=== PATIENT | female | born 1970 | race Caucasian/White ===

== ENCOUNTER 2016-06-09 08:41 | Emergency (ER) | payer MEDICAID ==
[~2016-06-09] VITALS: Wt 69.0 kg
[~2016-06-09 08:41] MED LIST: PREN-39 PO
[2016-06-09] MEDS ORDERED: KETOROLAC 30 MG INJ IM STA (09:19)
[2016-06-09 09:29] LABS: URINE BLOOD (Dip) POC 1+ (NEGATIVE)
[2016-06-09] MEDS ORDERED: predniSONE 20 MG TAB PO ONE (09:30)
--- NOTE | 2016-06-09 09:46 | ERD ---
ER Documentation Chief Complaint Date/Time DATE: 06/09/16 TIME: 09:44 Chief Complaint R LEG PAIN RADIATING FROM R BUTTOCK. NO TRAUMA ONSET ABOUT 2 DAYS. HPI This is a 46-year-old female who presents to the emergency department today complaining of right leg pain that radiates from her buttock down to the bottom of her foot. States this is been ongoing for the past 3 days and is unable to walk for sleep. States she has taken ibuprofen and Naprosyn for the pain. Denies any fevers or chills, loss of bowel or bladder control. Denies any trauma. ROS All systems reviewed and are negative except as per history of present illness. Medications Home Meds Active Scripts Acetaminophen* (Tylophen*) 500 Mg Capsule, 1 CAP PO Q6H Y for PAIN AND OR ELEVATED TEMP, #30 CAP Prov:GAUDENCIO CASH PA-C 06/09/16 Prednisone* (Prednisone*) 20 Mg Tab, 40 MG PO DAILY for 4 Days, TAB Prov:GAUDENCIO CASH PA-C 06/09/16 Naproxen* (Naprosyn*) 500 Mg Tablet, 500 MG PO BID Y for PAIN AND/OR INFLAMMATION, #30 TAB Prov:GAUDENICO CASH PA-C 06/09/16 Tramadol HCl (Tramadol HCl) 50 Mg Tablet, 50 MG PO Q4 Y for PAIN, #20 TAB Prov:GAUDENCIO CASH PA-C 06/09/16 Reported Medications Vits W-Ca,Fe,Fa(<1MG) ( Vitamins) 1 Tab Tablet, PO DAILY 02/07/11 Allergies Allergies: Coded Allergies: No Known Allergies (Verified Allergy, Unknown, 06/09/16) PMhx/Soc History of Surgery: Yes (c section x 5 ) Anesthesia Reaction: No Hx Neurological Disorder: No Hx Respiratory Disorders: No Hx Cardiac Disorders: No Hx Psychiatric Problems: No Hx Miscellaneous Medical Probl: No Hx Alcohol Use: No Hx Substance Use: No Hx Tobacco Use: No Smoking Status: Never smoker Physical Exam Vitals Vital Signs Date Time Temp Pulse Resp B/P Pulse Ox O2 Delivery O2 Flow Rate FiO2 06/09/16 08:44 98.8 75 20 162/74 100 Physical Exam Const: Sitting in wheelchair, no acute distress Head: Atraumatic Eyes: Normal Conjunctiva ENT: Normal External Ears, Nose and Mouth. Neck: Full range of motion..~ No meningismus. Resp: Clear to auscultation bilaterally Cardio: Regular rate and rhythm, no murmurs Skin: No petechiae or rashes Back: No midline tenderness. Right-sided paraspinal tenderness. Unable to assess range of motion secondary to pain. Pulses 2+. Distal neurovascularly intact. Ext: No cyanosis, or edema Neur: Awake and alert Psych: Normal Mood and Affect Results 24 hrs Laboratory Tests Test 06/09/16 09:32 Bedside Urine Blood 1+ Bedside Urine Glucose (UA) Negative Bedside Urine Ketones (LAB) Negative Bedside Urine Leukocyte Esterase (L Negative Bedside Urine Nitrite (LAB) Negative Bedside Urine Protein (LAB) Negative Bedside Urine pH (LAB) 5.5 Current Medications Medications (Trade) Dose Ordered Sig/Ronnie Route PRN Reason Start Time Stop Time Status Last Admin Dose Admin Ketorolac Tromethamine (Toradol) 30 mg ONCE STAT IM 06/09/16 09:19 06/09/16 09:21 DC 06/09/16 09:29 Prednisone (Prednisone) 60 mg ONCE ONCE PO 06/09/16 09:30 06/09/16 09:31 DC 06/09/16 09:29 Patient: NANNETTE MOSER : 1970 Age: 46 Sex: F MR #: [id number] DOS: 06/09/16 0000 Ordering MD: GAUDENCIO CASH PA-C Location: [facility] Room/Bed: PROCEDURE: XR lumbosacral Spine Series CLINICAL INDICATION: Right leg pain TECHNIQUE: 3 standard radiographs were taken of the lumbosacral spine. COMPARISON: None FINDINGS: Alignment: the osseous elements are well aligned without evidence of subluxation. Disk spaces: the disk spaces are adequately maintained. Osseous structures: appear intact with no fracture or osseous destruction identified. there is no significant spondylosis. Joint spaces: the facet joints joints appear unremarkable. The sacroiliac joints appear normal. Soft tissues: appear unremarkable. IMPRESSION: Unremarkable lumbosacral spine series. R Nat, Physician Date Time Electronically viewed and signed by Naif Johns Physician on 06/09/2016 10:05 RH/ CC: GAUDENCIO CASH PA-C Procedures/MDM This a 46-year-old female who presents to the emergency department today complaining of right-sided leg pain that radiates from her buttocks. Patient did not have any trauma however she is unable to ambulate without pain and indicated difficulty sleeping and therefore did obtain lumbar spine films and UA. UA is negative for infection. Per the radiology report images of the lumbar spine are unremarkable. There is no acute fracture dislocation. Disc spaces are well maintained. No evidence of degenerative disc disease. Patient is afebrile and otherwise well-appearing. Low suspicion for abscess, cauda equina. Low suspicion for fracture dislocation. Low suspicion for DVT. Patient symptoms at this time most consistent with sciatica. Patient was given a Toradol injection here in the emergency department as well as prednisone. Pain improved I will give her a prescription for tramadol, Naprosyn, Tylenol short course of prednisone for home. She was also given crutches to help take the pressure off her leg and help ambulate. At this time the patient is stable for discharge and outpatient management. Patient should follow up with their PCP in the next 1-2 days. She was given a list of referrals. They may return to the emergency department sooner for any persistent or worsening of symptoms. Patient understood and agreed with the plan. Departure Diagnosis: Primary Impression: Pain of right leg Condition: Fair GAUDENCIO CASH PA-C Jun 09, 2016 09:46
--- NOTE | 2016-06-09 10:05 | RADRPT ---
PROCEDURE: XR lumbosacral Spine Series CLINICAL INDICATION: Right leg pain TECHNIQUE: 3 standard radiographs were taken of the lumbosacral spine. COMPARISON: None FINDINGS: Alignment: the osseous elements are well aligned without evidence of subluxation. Disk spaces: the disk spaces are adequately maintained. Osseous structures: appear intact with no fracture or osseous destruction identified. there is no si gnificant spondylosis. Joint spaces: the facet joints joints appear unremarkable. The sacroiliac joints appear normal. Soft tissues: appear unremarkable. IMPRESSION: Unremarkable lumbosacral spine series. Physician Telly Date Time Electronically viewed and signed by Physician Telly on 06/09/2016 10:05 /
[2016-06-09] MEDS ORDERED: ACET500C5 PO (10:31)
[2016-06-09] MEDS ORDERED: NAPR-260 PO (10:31)
[2016-06-09] MEDS ORDERED: TRAM50TA2 PO (10:31)
[2016-06-09] MEDS ORDERED: PRED20TA PO (10:31)
== END 2016-06-09 10:46 | disposition home or self-care (01) ==
LOC: FTE 08:41
DX: M79.604 Pain in right leg (principal)
CPT/HCPCS: 72100; 81003; 96372; J1885; J7512; Z7502

== ENCOUNTER 2016-09-19 08:59 | Emergency (ER) | payer MEDICAID ==
[~2016-09-19] VITALS: Ht 160 cm; Wt 71.5 kg
[~2016-09-19 08:59] MED LIST changes: +ACET500C5 PO; +NAPR-260 PO; +PRED20TA PO; +TRAM50TA2 PO
[2016-09-19 09:04] VITALS: Ht 160 cm; Wt 71.5 kg
[2016-09-19] MEDS ORDERED: ONDANSETRON (ODT) 4 MG TAB ODT STA (09:20)
[2016-09-19] MEDS ORDERED: MECLIZINE 12.5 MG TAB PO STA (09:20)
[2016-09-19] MEDS ORDERED: ACETAMINOPHEN 325 MG TAB PO STA (09:21)
[2016-09-19] MEDS ORDERED: ACET325T33 PO (10:12)
[2016-09-19] MEDS ORDERED: FLUT9.9S NASAL (10:12)
[2016-09-19] MEDS ORDERED: MECL12.574 PO (10:20)
[2016-09-19] MEDS ORDERED: ONDA4TAB14 PO (10:20)
--- NOTE | 2016-09-19 10:42 | ERD ---
ER Documentation Chief Complaint Date/Time DATE: 09/19/16 TIME: 10:40 Chief Complaint nasal congestion , headache HPI This is a 46-year-old female presenting to the emergency department complaining of nasal congestion, sinus pressure and increased tiredness for the past month. Patient rates the pain 6 out of 10 and states comes and goes. Patient states that she started having a headache this morning describing it as moderate in severity. She states that she feels dizzy when she turns her head, she states that she feels as if the room is spinning. She admits to having nausea. She denies vomiting, hearing loss, tinnitus, ear pain. ROS All systems reviewed and are negative except as per history of present illness. Medications Home Meds Active Scripts Ondansetron (Ondansetron Odt) 4 Mg Tab.rapdis, 4 MG PO Q6H Y for NAUSEA AND/OR VOMITING, #20 TAB Prov:CA JURADO PA-C 09/19/16 Meclizine Hcl* (Antivert*) 12.5 Mg Tab, 25 MG PO Q6H Y for DIZZINESS, #30 TAB Prov:CA JURADO PA-C 09/19/16 Fluticasone Propionate (Flonase Allergy Relief) 9.9 Ml [place].susp, 1 SPRAY NASAL BID, #1 BOTTLE TO EACH NOSTRIL Prov:CA JURADO PA-C 09/19/16 Acetaminophen* (Tylenol*) 325 Mg Tablet, 2 TAB PO Q6 Y for PAIN AND OR ELEVATED TEMP, #30 TAB Prov:CA JURADO PA-C 09/19/16 Acetaminophen* (Tylophen*) 500 Mg Capsule, 1 CAP PO Q6H Y for PAIN AND OR ELEVATED TEMP, #30 CAP Prov:GAUDENCIO CASH PA-C 06/09/16 Prednisone* (Prednisone*) 20 Mg Tab, 40 MG PO DAILY for 4 Days, TAB Prov:GAUDENCIO CASH PA-C 06/09/16 Naproxen* (Naprosyn*) 500 Mg Tablet, 500 MG PO BID Y for PAIN AND/OR INFLAMMATION, #30 TAB Prov:GAUDENCIO CASH PA-C 06/09/16 Tramadol HCl (Tramadol HCl) 50 Mg Tablet, 50 MG PO Q4 Y for PAIN, #20 TAB Prov:GAUDENCIO CASH [place] 06/09/16 Reported Medications Vits W-Ca,Fe,Fa(<1MG) ( Vitamins) 1 Tab Tablet, PO DAILY 02/07/11 Allergies Allergies: Coded Allergies: No Known Allergies (Verified Allergy, Unknown, 06/09/16) PMhx/Soc History of Surgery: Yes (c section x 5 ) Anesthesia Reaction: No Hx Neurological Disorder: No Hx Respiratory Disorders: No Hx Cardiac Disorders: No Hx Psychiatric Problems: No Hx Miscellaneous Medical Probl: No Hx Alcohol Use: No Hx Substance Use: No Hx Tobacco Use: No Physical Exam Vitals Vital Signs Date Time Temp Pulse Resp B/P Pulse Ox O2 Delivery O2 Flow Rate FiO2 09/19/16 09:04 98.2 89 19 139/69 98 Physical Exam GENERAL: well-developed/well-nourished, in no apparent distress, non-toxic appearing HENT: NC/AT, bilateral tympanic membrane is normal with good cone of light, nares patent, oropharynx clear without exudates EYES: Conjunctiva normal, PERRLA, EOMI, no nystagmus noted NECK: Supple, no lymphadenopathy PULM: CTA bilaterally, no rales, rhonchi, or wheezing heard CV: Normal S1S2, RRR, good capillary refill GI: Soft, non-distended, normal bowel sounds, non-tender BACK: No midline tenderness, no masses, No CVAT EXT: No clubbing, cyanosis, or edema NEURO: Alert and orientated to person, place, and time. CN II-IIX intact. Gait and coordination were normal. 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 equal and within normal limits SKIN: Intact, normal turgor PSYCH: Normal mood and mentation, patient denied SI Results 24 hrs Current Medications Medications (Trade) Dose Ordered Sig/Ronnie Route PRN Reason Start Time Stop Time Status Last Admin Dose Admin Meclizine HCl (Antivert) 25 mg ONCE STAT PO 09/19/16 09:20 09/19/16 09:21 DC 09/19/16 09:25 Ondansetron HCl (Zofran Odt) 4 mg ONCE STAT ODT 09/19/16 09:20 09/19/16 09:21 DC 6/9/17 09:25 Acetaminophen (Tylenol Tab) 650 mg ONCE STAT PO 09/19/16 09:21 09/19/16 09:22 DC 09/19/16 09:25 Procedures/MDM This is a well-appearing 46-year-old female presenting to the emergency department complaining of nasal congestion, increased tiredness for 1 month and symptoms of vertigo and headache that started today. Patient likely has allergic vs viral sinusitis. My clinical suspicion for peripheral vertigo is high due to physical examination. Symptoms were reproduced with movement of head. My other differentials include but not limited to include labyrinthitis, vestibular neuritis, Mnire's disease, acoustic neuroma, otitis media and central causes such as vestibular migraine, brainstem ischemia, and multiple sclerosis. Patient associates a headache with it therefore I thought it was appropriate to do a CT scan of the head, radiologist stated: No evidence of acute intracranial pathology. In the ED, patient was given Antivert 25mg and Zofran 4mg ODT. Hemodynamically stable to be discharged home. I have discussed the pathology of the condition. Prescriptions flonase, antivert, zofran have been given. I have discussed to see a primary care physician for follow-up examination and management. I have given strict precautions to return to the ER if condition is not improving as expected or if condition worsens. Discussed to return to the ER if condition worsens or not improves as expected. Patient expressed that they agreed and understood this plan. Departure Diagnosis: Primary Impression: Vertigo Additional Impressions: Sinusitis Headache Condition: Stable Patient Instructions: Inner Ear Problems: Causes of Dizziness (Vertigo), Sinusitis, No Abx, Vertigo, Unspecified, Uri, Viral, No Abx (Adult) Referrals: NO PRIMARY,CARE PHYSICIAN (PCP) Additional Instructions: Llame al doctor MAANA y nicholas maurisio THEODORA PARA DENTRO DE 1-2 TORRES.Dgale a la secretaria que nosotros le instruimos hacer esta theodora.Avise o llame si vidal condicin se empeora antes de la theodora. Regresa aqui si peor o no mejor. [place] toda la medicina minnie y rashid se le indic. Regrese a estas instalaciones si no se mejora rashid esperbamos o rashid le dijimos. CA JURADO PA-C Sep 19, 2016 10:42
--- NOTE | 2016-09-19 13:12 | RADRPT ---
PROCEDURE: CT brain without contrast CLINICAL INDICATION: Vertigo TECHNIQUE: CT of the brain without contrast was performed on a multidetector CT scanner, with multi planar reformats. One or more of the following dose reduction techniques were used: Automated expos ure control, adjustment in mA and / or kV according to patient size, use of iterative reconstructive technique. CTDIvol = 45 mGy; DLP = 630 mGy-cm. COMPARISON: None available FINDINGS: No acute intracranial hemorrhage is identified. No extra-axial fluid collection is seen. There is no mass effect. No midline shift is identified. Ventricles and sulci are within normal limits for size and configuration. The density of the brain is unremarkable. Milton-white differentiation is preserved. Sella is noted to be partly empty. Osseous structures are unremarkable. Mastoid air cells and imaged paranasal sinuses grossly clear. IMPRESSION: No evidence of acute intracranial pathology. RPTAT: VV .Az Darling MD, MD Date Time Electronically viewed and signed by .Az Darling MD, on 09/19/2016 13:11 .O/
== END 2016-09-19 13:35 | disposition home or self-care (01) ==
LOC: FTE 08:59
DX: R42 Dizziness and giddiness (principal); R51 Headache; R11.0 Nausea; J32.9 Chronic sinusitis, unspecified
CPT/HCPCS: 70450; Z7502; Z7610

== ENCOUNTER 2016-09-24 07:51 | Emergency (ER) | payer MEDICAID ==
[~2016-09-24] VITALS: Ht 157.5 cm; Wt 71.5 kg
[~2016-09-24 07:51] MED LIST changes: +ACET325T33 PO; +FLUT9.9S NASAL; +MECL12.574 PO; +ONDA4TAB14 PO
[2016-09-24 07:54] VITALS: Ht 157.5 cm; Wt 71.5 kg
[2016-09-24] MEDS ORDERED: KETOROLAC 60 MG INJ IM STA (08:24)
[2016-09-24] MEDS ORDERED: PROCHLORPERAZINE 10 MG TAB PO ONE (08:30)
[2016-09-24] MEDS ORDERED: DIPHENHYDRAMINE 50 MG INJ IM ONE (08:30)
[2016-09-24] MEDS ORDERED: ASPI1TAB30 PO (09:57)
[2016-09-24] MEDS ORDERED: CETI1TAB6 PO (09:57)
[2016-09-24 10:06] VITALS: BP 150/67; PULSE 76; RESP 18; TEMP 98.2
--- NOTE | 2016-09-24 16:45 | ERD ---
ER Documentation Chief Complaint Date/Time DATE: 09/24/16 TIME: 16:35 Chief Complaint headaches, back pains, and dizziness HPI 46-year-old female complaining of headache 4 days. Pain is constant, but worse when she is moving her head. The pain is located in the bilateral temporal region, pressure-like. She took Tylenol last night, which helped ease the pain a little. Patient reports right side nasal drip 1 month. The rhinorrhea is clear. She has chills on and off. Positive phonophobia and photophobia with nausea, but no vomiting. Denies shortness breath. Denies abdominal pain. Denies cough. Denies diarrhea or constipation. Denies neck pain. Denies blurry vision. Denies one-sided weakness or numbness. She was seen here 6 days ago for dizziness and vertigo, was given meclizine, Zofran, and Flonase nasal spray. She also received CT of the brain at that time. ROS All systems reviewed and are negative except as per history of present illness. Medications Home Meds Active Scripts Cetirizine/Pseudoephedrine (Zyrtec-D) 5-120 Mg Tab.er.12h, 1 TAB PO Q12, #20 TAB Prov:TONNY FLOWER. EN[employer]EVEL CIVIL ENGINEER 09/24/16 Aspirin/Acetaminophen/Caffeine (Excedrin Migraine Caplet) 1 Each Tablet, 1 EACH PO Q6, #30 TAB Prov:TONNY FLOWER. EN[employer]EVEL CIVIL ENGINEER 09/24/16 Ondansetron (Ondansetron Odt) 4 Mg Tab.rapdis, 4 MG PO Q6H Y for NAUSEA AND/OR VOMITING, #20 TAB Prov:CA JURADO PA-C 09/19/16 Meclizine Hcl* (Antivert*) 12.5 Mg Tab, 25 MG PO Q6H Y for DIZZINESS, #30 TAB Prov:CA JURADO PA-C 09/19/16 Fluticasone Propionate (Flonase Allergy Relief) 9.9 Ml [place].susp, 1 SPRAY NASAL BID, #1 BOTTLE TO EACH NOSTRIL Prov:CA JURADO PA-C 09/19/16 Acetaminophen* (Tylenol*) 325 Mg Tablet, 2 TAB PO Q6 Y for PAIN AND OR ELEVATED TEMP, #30 TAB Prov:CA JURADO PA-C 09/19/16 Acetaminophen* (Tylophen*) 500 Mg Capsule, 1 CAP PO Q6H Y for PAIN AND OR ELEVATED TEMP, #30 CAP Prov:GAUDENCIO CASH PA-C 06/09/16 Prednisone* (Prednisone*) 20 Mg Tab, 40 MG PO DAILY for 4 Days, TAB Prov:GAUDENCIO CASHC 06/09/16 Naproxen* (Naprosyn*) 500 Mg Tablet, 500 MG PO BID Y for PAIN AND/OR INFLAMMATION, #30 TAB Prov:GAUDENCIO CASH PA-C 06/09/16 Tramadol HCl (Tramadol HCl) 50 Mg Tablet, 50 MG PO Q4 Y for PAIN, #20 TAB Prov:GAUDENCIO CASH PA-C 06/09/16 Reported Medications Vits W-Ca,Fe,Fa(<1MG) ( Vitamins) 1 Tab Tablet, PO DAILY 02/07/11 Allergies Allergies: Coded Allergies: No Known Allergies (Verified Allergy, Unknown, 09/24/16) PMhx/Soc History of Surgery: Yes (c section x 5 ) Anesthesia Reaction: No Hx Neurological Disorder: No Hx Respiratory Disorders: No Hx Cardiac Disorders: No Hx Psychiatric Problems: No Hx Miscellaneous Medical Probl: No Hx Alcohol Use: No Hx Substance Use: No Hx Tobacco Use: No Smoking Status: Never smoker Physical Exam Vitals Vital Signs Date Time Temp Pulse Resp B/P Pulse Ox O2 Delivery O2 Flow Rate FiO2 09/24/16 10:06 98.2 76 18 150/67 98 Room Air 09/24/16 07:54 100.9 104 22 163/73 98 Physical Exam General: Well-developed, well-nourished, conscious and coherent, in no distress Skin: Warm and dry without rash, good texture and turgor Head: Normocephalic without evidence of trauma Eyes: Sclera and conjunctivae normal; pupils equal, round, and reactive to light; extraocular movements are intact Ears: Canals are patent. Tympanic membranes are clear Nose/Face: Nasal mucosa erythematous and swollen, without rhinorrhea. No sinuses tenderness percussion. Mouth/throat: Mucous membranes are moist. Posterior pharynx clear without erythema or exudates Neck: Supple without meningismus or adenopathy. Carotids are equal. Trachea midline. No bruits or JVD Chest: Normal AP diameter. Good expansion without retractions. Nontender. Lungs are clear to auscultate bilaterally with good tidal volume Heart: Regular rate and rhythm. No murmur, rub, or gallops heard Abdomen: Soft and nontender without masses, guarding, or rebound. Bowel sounds are active. No hepatosplenomegaly Back: Without spinal or CVA tenderness Extremities: Full range of motion. Good strength bilaterally. No clubbing, cyanosis, or edema. Peripheral pulses are intact. Sensation intact Neuro: Alert and oriented 4; GCS 15. Cranial nerves II - XII intact. Motor sensory exam nonfocal. Moves all extremities. Deep tendon reflexes 2+ in all extremities. Speech clear. No pronator drift. Gait steady. Results 24 hrs Current Medications Medications (Trade) Dose Ordered Sig/Ronnie Route PRN Reason Start Time Stop Time Status Last Admin Dose Admin Ketorolac Tromethamine (Toradol) 60 mg ONCE STAT IM 09/24/16 08:24 09/24/16 08:27 DC 09/24/16 08:40 Diphenhydramine HCl (Benadryl) 50 mg ONCE ONCE IM 09/24/16 08:30 09/24/16 08:31 DC 09/24/16 08:40 Prochlorperazine (Compazine) 10 mg ONCE ONCE PO 09/24/16 08:30 09/24/16 08:31 DC 09/24/16 08:40 Procedures/MDM Well-appearing 46-year-old female presented ED with headache 4 days. Her headache appears to be a combination of tension headache and migraine headache. Patient given Toradol, Benadryl, and Compazine in the ED. Patient reports improvement headache after the medications. Low suspicion for intracranial hemorrhage, brain tumor, stroke, or cerebral aneurysm. Her rhinorrhea is likely due to allergic rhinitis. However, patient has a low- grade fever on arrival, I suspect she may have developed a viral upper respiratory infection. Low suspicion for pneumonia or bronchitis. Patient appears well, stable for discharge and outpatient management. Medical decision making shared with patient and family. Education provided to patient and family. Patient and family expressed understanding of the plan. Medications on discharge: Excedrin migraine, Zyrtec, saline nasal spray. Follow-up: Primary care provider in 2-3 days or return to ED if worse. Departure Diagnosis: Primary Impression: Headache Additional Impression: Allergic rhinitis Condition: Stable Patient Instructions: Self-Care for Headaches, Allergic Rhinitis Referrals[facility] Usted se man hecho un examen mdico de control que le indica que no est en maurisio condicin que requiera tratamiento urgente en el Departamento de Emergencia. Un estudio ms profundo y el tratamiento de vidal condicin pueden esperar sin ningn riesgo hasta que usted sea atendida/o en el consultorio de vidal mdico o maurisio cl jimenez. Es responsabilidad suya arreglar maurisio theodora para el seguimiento del teresa. MANEJO DE CONDICIONES NO URGENTES EN EL FUTURO 1) Si usted tiene un mdico de atencin primaria: Usted debera llamar a vidal mdico de atencin primaria antes de venir al departamento de emergencia. Despus de las horas de consultorio, vidal doctor o vidal asociado/a est disponible por telfono. El mdico o enfermero de gilbert en el servicio telefnico puede asesorarle por gamaliel medio para atender el problema, o teresa contrario se puede programar maurisio theodora. 2) Si usted no tiene un mdico de atencin primaria: Llame al mdico o clnica de referencia que aparece abajo gamal las horas de consultorio para hacer maurisio theodora para que le vean. CLINICAS: [facility] [phone] [facility] [phone] [facility] [phone] [facility] [facility] [phone] [facility]. [place] [id number] [phone] [place] [id number] [phone] Additional Instructions: Llame al doctor MAANA y nicholas maurisio THEODORA PARA DENTRO DE 2-3 TORRES.Dgale a la secretaria que nosotros le instruimos hacer esta theodora.Avise o llame si vidal condicin se empeora antes de la theodora. Regresa aqui si peor o no mejor. TONNY FLOWER. ZANE Sep 24, 2016 16:45
== END 2016-09-24 10:07 | disposition home or self-care (01) ==
LOC: FTE 07:51
DX: R51 Headache (principal); J30.9 Allergic rhinitis, unspecified
CPT/HCPCS: 96372; J1200; J1885; Z7502; Z7610